=== PATIENT | female | born 1965 | race African-American/Black ===

== ENCOUNTER → 2025-01-14 | Outpatient (CLI) | payer MEDICAID, SELFPAY ==
--- NOTE | 2025-01-14 09:35 | XR_ITS ---
Examination: Bilateral ribs with AP chest, 4 views TECHNIQUE: Upright AP chest, AP, RPO, LPO bilateral ribs total 4 views Date and time: January 14, 2025 0952 hours INDICATIONS: Chest pain beginning 4 days ago post chest injury FINDINGS: Normal heart size No pneumothorax. Moderate osteopenia. No acute rib fractures IMPRESSION: No pneumothorax pulmonary contusion or hemothorax No acute rib fractures
--- NOTE | 2025-01-14 09:35 | XR_ITS ---
Examination: PA lateral chest 2 views TECHNIQUE: Upright PA lateral chest 2 views Date and time: January 14, 2025 0949 hours INDICATIONS: Chest pain beginning 4 days ago. FINDINGS: Normal heart size. Lungs are clear. The osseous structures are intact IMPRESSION: No active disease
== END | disposition home or self-care (01) ==
LOC: CDIM 09:24
PROVIDERS: PCP Physician Assistant; Referring Provider Physician Assistant; Visit Provider Physician Assistant
DX: S29.9XXA Unspecified injury of thorax, initial encounter (principal); X58.XXXA Exposure to other specified factors, initial encounter
CPT/HCPCS: 71046; 71110